=== PATIENT | female | born 1955 | race Caucasian/White ===

== ENCOUNTER → 2020-05-17 11:54 | Outpatient (CLI) | payer MEDICARE, MEDICAID, SELFPAY ==
[2020-05-17 12:57] LABS: COVID19 -Nasal RAPID Negative (Negative)
== END ==
PROVIDERS: Family Provider Physician Assistant; PCP Family Medicine; Visit Provider Physician Assistant
DX: Z01.812 Encounter for preprocedural laboratory examination (principal); Z20.822 Contact with and (suspected) exposure to COVID-19
CPT/HCPCS: 87635; C9803

== ENCOUNTER 2020-05-19 14:10 | Observation (INO) | payer MEDICARE, MEDICAID, SELFPAY ==
[2020-05-11 11:23] VITALS: BMI 48.6
[2020-05-11 14:57] VITALS: BMI 48.6
[2020-05-18] VITALS (16 sets, daily range): BP systolic 128–197; BP diastolic 61–79; PULSE 64–87; RESP 12–22; TEMP 36.1–36.6; O2SAT 94–100; BMI 48.6
--- NOTE | 2020-05-18 06:30 | DI.RAD.S_ITS ---
PROCEDURE: XR KNEE LT 1TO2V INDICATIONS: left TKA TECHNIQUE: 2 view(s) of the knee acquired. COMPARISON: None. FINDINGS: Bones: Expected postoperative alignment of left knee arthroplasty. Hardware appears intact. Soft tissues: Overlying postoperative changes are noted. IMPRESSION: Expected postoperative alignment. Dictated by: Kristopher Real M.D. on 05/18/2020 at 12:27 Approved by: Kristopher Real M.D. on 05/18/2020 at 12:28
[2020-05-18] MEDS: ACETAMINOPHEN 325 MG TABLET 975 MG PO (07:02)
[2020-05-18] MEDS: PREGABALIN 75 MG CAPSULE PO (07:02)
[2020-05-18] MEDS: VANCOMYCIN 1,000 MG/200 ML PIGGYBACK 200 MG IV (07:05)
--- NOTE | 2020-05-18 07:39 | PM.PREOP ---
Pre-operative Note COVID-19 COVID-19 status: Negative Interval Note History & Physical reviewed/Exam performed by Physician: Yes Changes to H&P: No
--- NOTE | 2020-05-18 07:40 | PM.OP.1 ---
Operative Date/Time/Diagnoses Date of procedure: 05/18/20 Time of procedure: 07:58 Pre-op diagnosis: Left knee osteoarthritis Post-op diagnosis: same Procedure & Clinicians Procedure: left total knee arthroplasty Same procedure as scheduled: Yes Indications: The patient has had progressively worsening left knee pain with radiographic changes consistent with arthritis. Non-operative management has failed and the patient has requested total knee replacement. The risks, benefits and alternatives to surgery were discussed with the patient prior to proceeding. Risks discussed included, but were not limited to, failure to relieve pain, stiffness, infection, nerve damage, deep venous thrombosis, pulmonary embolism, stroke, coma, heart attack, permanent paralysis and , as well as the potential need for eventual revision of the prosthetic. Surgeon: Lesley Agrawal Bone Grinder: Gregory Armendariz Anesthesia Type: General and Spinal Operative Notes Findings: severe left knee osteoarthritis, good stability Closure Type: primary Specimen(s): none sent Prosthetic devices, grafts, tissues, transplants, or devices: Agrawal and Nephew Dank BCS 2 size 5 femur, size 3 tibia, +10 poly, patella 7.5 x 32 mm Applied: drain(s) Estimated Blood Loss (mL): 250 Blood products transfused: none Tourniquet time (min): 95 Procedure in detail: The patient was seen in the pre-operative area, where the patient identified the left knee as the operative site and this was marked with my initials. The patient received pre-operative antibiotics, and was taken to the operating room and placed on the operative table in the supine position. After satisfactory anesthesia, a time recorder out was performed. The left leg was encircled with a tourniquet about the proximal thigh, and the leg was prepared from the toes to the tourniquet with ChloroPrep in the usual fashion and draped through sterile drapes. The leg was elevated and exsanguinated with Eschmark bandage and the tourniquet inflated to [250] mmHg pressure. The knee was approached through an approximately 18 cm incision centered over the patella and carried into the knee through a medial parapatellar arthrotomy. A portion of the medial and lateral meniscus was resected. Soft tissue was carefully mobilized around the patella the patella was measured with a caliper. Bone was resected from the patella and the patellar height was reconstituted with up an appropriate sized patellar component. A cover was then placed on the patella. A small amount of additional medial and lateral meniscus was resected. The distal femur was cut at 5?. A [+2] cut was used. It looked like an appropriate distal femoral cut and the cut was made without difficulty. An extramedullary guide was used for the tibial cut. 10 mm was resected off the least affected side.The tibia was prepared. The rotation was assessed. The patient was placed in extension residual medial and lateral meniscus as well as any residual bone was carefully resected. [No] additional tibia was resected. Hemostasis was achieved especially posteriorly. Additional local was injected into the posterior capsule. The extension gap was assessed and additional releases for gap balancing were performed as necessary. It was checked with the gap glass robot operator. The rotation was assessed and the appropriate size femoral guide was placed on the distal femur and finishing cuts were made. There was no evidence of notching. The anterior, posterior and chamfer cuts were then made. The posterior osteophytes and soft tissues were then removed. The posterior capsule was injected with part of a mixture of 60 ml 0.25% Marcaine mixed with 20 ml Exparel for post operative pain control. The remainder of this mixture was injected into the capsule and subcutaneous tissues during cement curing.The femoral component was placed and the notch was finished. The tibial and femoral components were then placed and the knee placed through a range of motion. Range of motion was [0-120], with good stability throughout the range. The trials were then removed, and the tibia was finished. The bone was prepared with pulsatile lavage, and dried with a sponge. Cement was applied and the final prosthetics placed. Excess cement was removed during and after cement curing. A brief Betadine soak was performed. After confirming there was no extruded cement posteriorly, the final tibial insert was placed. The knee was copiously irrigated and the tourniquet deflated. Hemostasis was obtained with the Bovie. A drain was placed and brought out superolaterally. The capsule was closed with interrupted nonabsorbable suture. The subcutaneous layer was closed with barbed sutures, and the skin with a running 3-0 V-Lock suture and skin berkley. An theresa dressing was applied and the patient was taken to recovery having tolerated the procedure well. Complications: none Post-operative Condition: stable Disposition: Acute Care Plan for aftercare: The patient will be maintained on a standard total knee replacement protocol with weight bearing as tolerated. The patient will receive Aspirin and sequential compression devices for DVT prophylaxis. The patient will be discharged home when safe for the home environment.
[2020-05-18] MEDS: LACTATED RINGERS 1,000 ML 42 ML IV ×2 (07:50→08:59)
[2020-05-18] MEDS: CEFAZOLIN 2 GM/100 ML FROZ.PIGGY IV (08:02)
--- NOTE | 2020-05-18 08:50 | SUR.OPER ---
Supine on padded OR bed. Pillow under head, arms secured on padded armboards <90 degree abduction. Safety belt across torso. Non-operative leg secured with tape over blanket over lower leg. Operative leg secured in DeMayo positioner. Foam padded brace at thigh of operative leg.
[2020-05-18] MEDS: TRANEXAMIC ACID 1,000 MG VIAL 2000 MG INJ ×2 (08:55→10:26)
[2020-05-18] MEDS: BUPIVACAINE LIPOSOME 266 MG/20 ML VIAL INJ (08:57)
[2020-05-18] MEDS: SODIUM CHLORIDE IRRIG SOLUTION 250 ML, POVIDONE-IODINE SPONGE STICKS 1 APPLIC IRR (08:57)
[2020-05-18] MEDS: BUPIVACAINE 0.5% W/ EPI (PF) 30 ML VIAL INJ (09:00)
--- NOTE | 2020-05-18 10:54 | PC.NURSE ---
Day shift: Pt not on AC unit at this time.
[2020-05-18] MEDS: NYSTATIN CREAM 30 GM 1 APPLIC TOP (11:08)
[2020-05-18] MEDS: OXYCODONE IR 5 MG TABLET PO ×3 (11:45→16:51)
[2020-05-18] MEDS: hydrOXYzine pamoate 25 MG CAPSULE PO (11:45)
--- NOTE | 2020-05-18 12:11 | PC.NURSE ---
Day shift: Pt on AC unit from PACu at approx 1210. She is A&Ox4. Spouse in room for support and his name is Sp. Reports pain 5/10. Denies any nausea. Tolerating ice chips and SCD's. 2L NC 96%. Dylan-vac to be unclamped at 1300. Left knee is MARK wrapped and KOKI in place (all CDI). Rash in panis and Nystain cream in Pt's room. It was applied in surgery department. Pt agrees to not get OOB w/o help from staff. PPP and CMS intact. Pt can wiggle bilat toes, feet, and legs. Will continue w/ post-op plan of care.
[2020-05-18] MEDS: IBUPROFEN 400 MG TABLET PO ×3 (12:52→21:17)
[2020-05-18] MEDS: OXYCODONE IR 10 MG TABLET PO (12:52)
[2020-05-18] MEDS: LACTATED RINGERS 1,000 ML 100 ML IV ×2 (12:57→22:37)
[2020-05-18] MEDS: ACETAMINOPHEN 325 MG TABLET 650 MG PO ×2 (14:48→21:17)
--- NOTE | 2020-05-18 16:18 | PT.IIE ---
Current Diagnoses Type 2 diabetes mellitus without complications (05/18/20) Other obesity due to excess calories (05/18/20) Obesity, unspecified (05/18/20) Sleep apnea, unspecified (05/18/20) Essential (primary) hypertension (05/18/20) Heart failure, unspecified (05/18/20) Unspecified asthma, uncomplicated (05/18/20) Spinal stenosis, site unspecified (05/18/20) Fibromyalgia (05/18/20) Other specified postprocedural states (05/18/20) Surgery Performed Operation Date: 05/18/20 07:45 Actual Procedures p Total Knee Arthroplasty(Left) - Lesley Agrawal MD Surgical History (Last Updated 05/17/20 @ 10:36 by Abby Colunga, RN) H/O lumbar discectomy History of bariatric surgery History of carpal tunnel release History of hysterectomy History of Rahat fundoplication History of total abdominal hysterectomy and bilateral salpingo-oophorectomy Hx of CABG Hx of cholecystectomy Medical History (Last Updated 05/17/20 @ 10:41 by Abby Colunga, RN) Allergic rhinitis Anxiousness Arachnoiditis Arthritis Asthma Atypical chest pain Back pain Bursitis of hip, right Cardiogenic shock (~2019) CHF (congestive heart failure) Chronic diastolic CHF (congestive heart failure) Chronic headache Chronic pain syndrome CKD (chronic kidney disease) stage 3, GFR 30-59 ml/min Cough DMII (diabetes mellitus, type 2) Dysphoric mood Eustachian tube dysfunction Fibromyalgia Frequent PVCs GERD (gastroesophageal reflux disease) Heart failure with preserved ejection fraction History of orthopnea History of pulmonary hypertension Hx of Clostridium difficile infection Hyperlipidemia Hypertension Intentional weight loss Intertrigo Lower extremity edema Lung mass Morbid obesity Narcolepsy Nervous Neuropathy Obesity Obesity due to excess calories Oral candidiasis Osteopenia Paroxysmal nocturnal dyspnea Plantar fasciitis of right foot Pneumonia Primary osteoarthritis of left knee Psoriasis Psoriatic arthritis PVD (peripheral vascular disease) Renal insufficiency Restless leg Seasonal allergies Sinus congestion Sinus tachycardia Sleep apnea with use of continuous positive airway pressure (CPAP) Sleep disturbance Spinal stenosis Thyroid disease Tinnitus Vitamin B12 deficiency Vitamin D deficiency Physical Therapy Inpatient Evaluation/Re-Eval M1 PT/OT-IP Prior Functional Status Start: 05/18/20 16:18 Freq: NEEDED Status: Active Protocol: Document 05/18/20 16:18 DLM (Rec: 05/18/20 16:42 DLM [id number]) Medical Review Prior Functional Status Medical History Reviewed Yes Diet/Fluid Consistency Regular Communication WNL Mobility and Gait ambulates in house without device, uses quad cane when going outside of the house, uses electric cart at grocery store, has 4WW she uses at home only as needed Activities of Daily Living and IADL's caregiver assist for ADL's and housekeeping Prior Functional Level (Other details) has a caregiver 6 hours per day, Spouse is disabled and can provided limited help, her Spouse sleeps odd hours to manage his health issues Social History Household Members spouse Living Arrangements House Number of Floors (Floors) One Floor Number of Stairs To Enter/Railing? can enter through garage without steps Home Environment Standard Height Toilet,Walk in Shower Home Equipment Four Wheel Walker,Quad Cane, Shower Seat without Backrest M2 PT-IP Current Condition Start: 05/18/20 16:18 Freq: NEEDED Status: Active Protocol: Document 05/18/20 16:18 DLGinny (Rec: 05/18/20 16:42 [facility] [id number]) Physical Therapy Current Condition Current Condition Evaluation Date 05/18/20 Treatment Diagnosis left TKA, impaired gait Onset Date 05/18/20 Weight Bearing Status Weight Bearing Status Weight Bear as Tolerated M3 PT-IP Subjective Start: 05/18/20 16:18 Freq: NEEDED Status: Active Protocol: Document 05/18/20 16:18 DLGinny (Rec: 05/18/20 16:42 [facility] [id number]) Subjective Physical Therapy Visit Type Type Initial Evaluation Visit Start Time 13:55 Visit Stop Time 16:18 Total Visit Minutes 23 Number of SYSTEM SOFTWARE DEVELOPER Visits 0 Physical Therapy Visit Comments Patient Comments She needs to go the bathroom, wants to sit up in the chair Patient Goals discharge home Therapy Pain Assessment Pain When Pain Assessed During Mobility Pain Present Pain Present Pain Reported Location left knee Intensity 7 Scale Used Numeric (0 - 10) Description Aching,With Movement Pain Behaviors Guarding Pain Management Techniques Apply Cold,Elevation M4 PT-IP Mobility and Gait Start: 05/18/20 16:18 Freq: NEEDED Status: Active Protocol: Document 05/18/20 16:18 DLGinny (Rec: 05/18/20 16:42 [facility] [id number]) PT-Bed Mobility Assessment Supine to Sit Supine to Sit Minimal Assistance Scooting Scooting to Edge of Bed Standby Assistance PT-Transfer Assessment Sit to and From Stand Sit to and from Stand Standby Assistance,Contact Guard Assistance,Use of Upper Extremities Equipment Transfer Assistive Device Gait Belt,Front Wheeled Walker Transfers Transfer Destination Chair,Bedside Commode Transfer Technique Stand Step Pivot Transfer Ability Level of Assist Standby Assistance,Contact Guard Assistance,Use of Upper Extremities Comments Mobility Comments pt up to bedside commode to urinate, pt incontinent during mobility, pt up to recliner when done on commode, pt left sitting with feet up and call light close Gait Assessment Gait Gait Assistance Required: Contact Guard Assist Distance (Feet) 2 Assistive Devices Assistive Device Gait Belt,Front Wheeled Walker Gait Deviations General Gait Pattern Antalgic Factors Limiting Gait Function Factors Limiting Gait Function Decreased Activity Tolerance, Decreased Strength,Limited Range of Motion,Pain Comments Gait Comments no light-headedness and no nausea this visit Stair Climbing Assessment Comments Stair Climbing Comments she has 3-4 steps at the front door but she usually goes in from the garage where there are no steps PT-Balance Assessment Sitting Balance and Reactions Static Sitting Balance Ability Normal Dynamic Sitting Balance Ability Normal Standing Balance and Reactions Static Standing Balance Ability Good Dynamic Standing Balance Ability Fair Device Used FWW M5 PT-IP Objective Assessments Start: 05/18/20 16:18 Freq: NEEDED Status: Active Protocol: Document 05/18/20 16:18 DL (Rec: 05/18/20 16:42 [facility] [id number]) Orientation Orientation/Cognition Level of Alertness Alert Orientation Name,Age,Birthday,Month,Date, Year,Day of Week,Place, Situation Language Function Ability No Deficits Noted Safety Awareness Understands Safety Issues Memory Description No Deficits Noted Gross Range of Motion Upper Extremity ROM Assessment Within Functional Limits Lower Extremity ROM Assessment Left Impaired Impairments tolerating about 20 degrees of knee AROM with c/o pain post- op TKA Strength Upper Extremity Strength Assessment Within Functional Limits Lower Extremity Strength Assessment Left Impaired Hip able to lift left LE off bed Knee 2+/5 Ankle DF 4/5 Comments Strength Comments pain with use of left LE post- op Coordination Assessment Gross Coordination Gross Coordination WNL Sensation Assessment Sensation Gross Sensation Right LE Impaired,Left LE Impaired Sensation Description Numbness Comments Sensation Comments hx neuropathy in feet, she reports left foot is a little more numb than baseline at this time Muscle Tone Muscle Tone WNL Yes M6 PT-IP Treatment Start: 05/18/20 16:18 Freq: NEEDED Status: Active Protocol: Document 05/18/20 16:18 DLM (Rec: 05/18/20 16:42 DL [id number]) Physical Therapy Treatment Exercises Exercises Ankle Pumps,Quad Sets,Heel Slides Education Education Provided Weight Bearing Status,Safety M7 PT-IP Assessment and Plan Start: 05/18/20 16:18 Freq: NEEDED Status: Active Protocol: Document 05/18/20 16:18 DLM (Rec: 05/18/20 16:42 [facility] [id number]) PT Summary Assessment and Plan Potential Rehabilitation Potential Good Status of Condition at Evaluation Evolving Summary Impairments Pain,ROM,Strength,Balance, Sensation,Bed Mobility, Transfers,Gait,Activity Tolerance Assessment Summary Shayla is alert and willing to work with physical therapy. She was able to get up to the commode and chair. She has increased with activity. She demonstrated good use of her UE's on the fWW to manage left LE pain. Pt has KOKI drain and hemovac in place. She reports having a caregiver at home who can help her 6 hours a day but she has to be independent when her caregiver leaves for the day. She does not use a bed at home and only sleeps in a recliner. She is progressing well today; day of surgery. Will continue to work towards discharge home. Goals Bed Mobility Goal Independent Transfer Goal Independent,Front Wheeled Walker Gait Goal Independent,Front Wheel Walker Gait Distance 75 feet Other Goals demonstrate good knowledge of HEP. Days to Meet Goals 3 Frequency of Treatment Frequency Of Treatment Twice a Day Treatment Plan Physical Therapy Treatment Plan Bed Mobility Training,Transfer Training,Gait Training, Therapeutic Exercise,Balance Retraining,Post Op Education, Discharge Planning,Hot or Cold Pack,Neuromuscular Re-ed Recommendations To Nursing Amount of Assist Needed 1 Person Assist Discharge Recommendations PT Discharge Recommendations Home with Assistance,Home Health Transportation Needs at Discharge Private Vehicle
[2020-05-18] MEDS: CEFAZOLIN VIAL 3 GM in SODIUM CHLORIDE 0.9% 100 ML 200 ML IV (16:40)
[2020-05-18] MEDS: INSULIN ASPART 100 UNIT/ML INSULN PEN SUBCUT (17:16)
--- NOTE | 2020-05-18 18:21 | PC.NURSE ---
Addendum entered by Sujey Epps R.N. 05/18/20 23:25: Satisfactory post op course. Med @ 2200 for discomfort w/good relief. Dsg remains CDI. Call light w/in reach, bed alarm on for pt safety. Continue w/plan of care. Original Note: Pt sitting in chair Med @ 1655 for discomfort, w/good relief. AC CBG = 162. S/S 1u given as per orders. IVF infusing into Right hand via pump as per orders. LAC HL intact/patent. KOKI dsg to left knee CDI Hemavac intact/patent. Stable post op course. Call light w/in reach, pt calls appropriately for needs.
[2020-05-18] MEDS: DOCUSATE 100 MG CAPSULE PO (21:16)
[2020-05-18] MEDS: DULOXETINE 30 MG CAPSULE PO (21:17)
[2020-05-18] MEDS: PRAMIPEXOLE 1 MG TABLET PO (21:17)
[2020-05-18] MEDS: ASPIRIN EC 81 MG TABLET PO (21:17)
[2020-05-18] MEDS: TAPENTADOL 100 MG 100 EACH PO (21:22)
[2020-05-18] MEDS: HYDROMORPHONE 2 MG TABLET PO (22:35)
[2020-05-19] MEDS: INSULIN GLARGINE 100 UNIT/ML 3ML PEN 25 UNIT SUBCUT (00:24)
[2020-05-19] MEDS: IBUPROFEN 400 MG TABLET PO ×4 (00:25→15:07)
[2020-05-19] MEDS: INSULIN ASPART 100 UNIT/ML INSULN PEN SUBCUT ×3 (00:25→12:07)
[2020-05-19] MEDS: CEFAZOLIN VIAL 3 GM in SODIUM CHLORIDE 0.9% 100 ML 200 ML IV (00:26)
[2020-05-19] MEDS: HYDROMORPHONE 2 MG TABLET PO ×3 (02:57→09:02)
[2020-05-19 05:00] VITALS: BP 125/68; PULSE 80; RESP 16; TEMP 36.1; O2SAT 94
[2020-05-19 05:35] LABS: Hematocrit 37.7 % (36-46); Hemoglobin 12.2 g/dL (12.0-16.0)
[2020-05-19 08:07] VITALS: BP 144/84; PULSE 54; RESP 18; TEMP 35.9; O2SAT 95
[2020-05-19] MEDS: MULTIVITAMIN 1 TABLET 1 TAB PO (08:07)
[2020-05-19] MEDS: CHOLECALCIFEROL (VITAMIN D3) 5,000 UNIT TABLET 5000 UNIT PO (08:07)
[2020-05-19] MEDS: DOCUSATE 100 MG CAPSULE PO (08:07)
[2020-05-19] MEDS: FLUTICASONE 120 SPRAY/16 GM SPRAY.SUSP NASAL (08:07)
[2020-05-19] MEDS: MONTELUKAST 10 MG TABLET PO (08:07)
[2020-05-19] MEDS: SPIRONOLACTONE 25 MG TABLET PO (08:08)
[2020-05-19] MEDS: ROSUVASTATIN 10 MG TABLET 5 MG PO (08:08)
[2020-05-19] MEDS: DULOXETINE 30 MG CAPSULE PO (08:09)
[2020-05-19] MEDS: LOSARTAN 25 MG TABLET PO (08:09)
[2020-05-19] MEDS: PRAMIPEXOLE 1 MG TABLET PO (08:09)
[2020-05-19] MEDS: ASPIRIN EC 81 MG TABLET PO (08:09)
[2020-05-19] MEDS: ACETAMINOPHEN 325 MG TABLET 650 MG PO (08:10)
[2020-05-19] MEDS: FAMOTIDINE 20 MG TABLET 40 MG PO (08:22)
[2020-05-19] MEDS: LORATADINE 10 MG TABLET PO (08:22)
--- NOTE | 2020-05-19 08:58 | P.DS_ITS ---
History of Present Illness History of Present Illness Date Patient Seen: 05/19/20 Time Patient Seen: 08:59 Chief complaint: L TKA *OPB* Narrative: Please refer to previously documented HPI and chart. Discharge Providers Provider Discharge Date: 05/19/20 Primary care physician: Jeb Titus MD Consults: 05/11/20 16:27 Consult to Anesthesiology Routine Comment: Doesn't use CPAP - can't find a mask to fit Consulting Provider: Lesley Agrawal Reason for consultation: Wt/BMI, extensive history Has provider been notified: Yes Consult to Pastoral Services Routine Comment: Dmitry Consult to Respiratory Therapy Evaluate & Treat Comment: Can't find a CPAP mask to fit her, doesn't use Physician Instructions: Evaluate and treat 05/18/20 06:30 Consult to Anesthesiology Routine Comment: Consulting Provider: Anesthesiologist Reason for consultation: Regional block for post operative pain control 05/18/20 07:14 Consult to Respiratory Therapy Evaluate & Treat Comment: Physician Instructions: Evaluate and treat 05/18/20 10:27 Consult to Physician Routine Comment: consult to primary care provider for followup Consulting Provider: Lesley Agrawal Reason for consultation: Positive STOP BANG, management of obstructive sleep apnea Has provider been notified: Yes 05/18/20 12:11 Consult to Discharge Planning Routine Comment: Consult to Physical Therapy Evaluate & Treat Comment: Physician Instructions: postop TKA protocol Consult to Respiratory Therapy Evaluate & Treat Comment: Physician Instructions: Evaluate and treat Discharge provider: Gregory Armendariz PA-C Summary Hospital Course Discharge Diagnosis: Left knee osteoarthritis Status post total left knee arthroplasty Hospital Course: This is a 65-year-old female with the above-listed diagnosis was consented for the indicated procedure above and presents to the OR [facility] said procedure without difficulty or complication that admitted to hospital for rehabilitation having convalesced appropriately. The patient was eventually able to discharge home safely with home health as needed in stable condition. At the time of discharge the patient verbalized understanding postoperative care instructions and agreed with plan for follow-up as scheduled or sooner as needed. Status at Discharge Cognitive/behavioral status at discharge: oriented Functional status at discharge: uses cane/walker Overall status at discharge: patient is progressing back to baseline Exam Vital Signs (past 8 hours): - 05/19/20 05:00 05/19/20 08:07 Temperature 96.9 F L 96.7 F L Pulse Rate 80 54 L Respiratory Rate 16 18 Blood Pressure 125/68 144/84 H Pulse Oximetry 94 95 Oxygen Delivery Method CPAP Oxygen Flow Rate 0 Narrative Exam Narrative: This is a 65-year-old female observed resting comfortably in no apparent distress. Alert and oriented within normal limits. Regular heart rate and normal inspiratory effort. Dressing was clean, dry and intact. The extremity distal to the affected joint was neurovascularly intact with grossly normal motor function. Patient was negative for signs and symptoms of DVT bilaterally. Objective Labs Result Diagrams: 05/19/20 05:05 Labs: Laboratory Results - last 24 hr 05/19/20 05:05 Hgb 12.2 Hct 37.7 PFSH Medical History (Updated 05/17/20 @ 10:41 by Abby Colunga RN) Allergic rhinitis Anxiousness Arachnoiditis Arthritis Asthma Atypical chest pain Back pain Bursitis of hip, right Cardiogenic shock (~2018) CHF (congestive heart failure) Chronic diastolic CHF (congestive heart failure) Chronic headache Chronic pain syndrome CKD (chronic kidney disease) stage 3, GFR 30-59 ml/min Cough DMII (diabetes mellitus, type 2) Dysphoric mood Eustachian tube dysfunction Fibromyalgia Frequent PVCs GERD (gastroesophageal reflux disease) Heart failure with preserved ejection fraction History of orthopnea History of pulmonary hypertension Hx of Clostridium difficile infection Hyperlipidemia Hypertension Intentional weight loss Intertrigo Lower extremity edema Lung mass Morbid obesity Narcolepsy Nervous Neuropathy Obesity Obesity due to excess calories Oral candidiasis Osteopenia Paroxysmal nocturnal dyspnea Plantar fasciitis of right foot Pneumonia Primary osteoarthritis of left knee Psoriasis Psoriatic arthritis PVD (peripheral vascular disease) Renal insufficiency Restless leg Seasonal allergies Sinus congestion Sinus tachycardia Sleep apnea with use of continuous positive airway pressure (CPAP) Sleep disturbance Spinal stenosis Thyroid disease Tinnitus Vitamin B12 deficiency Vitamin D deficiency Surgical History (Updated 05/17/20 @ 10:36 by Abby Colunga RN) H/O lumbar discectomy History of bariatric surgery History of carpal tunnel release History of hysterectomy History of Rahat fundoplication History of total abdominal hysterectomy and bilateral salpingo-oophorectomy Hx of CABG Hx of cholecystectomy Social History household members: spouse Smoking Status: Never smoker alcohol intake: current Discharge Assessment & Plan Assessment and Plan Assessment: Left knee osteoarthritis Status post total left knee arthroplasty Plan of Treatment: -discharge home with home health as needed after cleared by PT/OT. -total left knee care protocols apply. -follow-up in clinic in 2 weeks for re-evaluation or sooner as needed. Discharge Plan Discharge Plan Patient Disposition: SNF Transfer to: Home Health, Other Provider Discharge Comment: Discharge to home with any home health services recommended. I certify the postop hospital fdc care is medically necessary on a continuing basis for any conditions for which he/ she received care during this hospitalization.: Yes The receiving facility has agreed to accept transfer and provide medical treatment.: Yes Discharge orders & Medications Discharge Orders: Discharge (Order); Ordered 05/19/20 Ordered By: Gregory Armendariz Prescriptions: New acetaminophen 325 mg Tablet 650 mg PO TID PRN (Reason: Breakthrough Pain, Moderate) Qty: 60 RF: 0 aspirin 81 mg Tablet,Delayed Release (Dr/Ec) 81 mg PO BID Qty: 90 RF: 0 oxycodone 10 mg Tablet 5 - 10 mg PO Q4-5H PRN (Reason: Pain, Severe (7-10)) Qty: 40 RF: 0 Continued Lantus U-100 Insulin 100 unit/mL Solution 25 unit SUBCUT BEDTIME RF: 0 methylphenidate HCl 20 mg Tablet 20 - 40 mg PO DAILY PRN (Reason: narcolepsy) RF: 0 metolazone 5 mg Tablet 5 mg PO DAILY PRN (Reason: Water weight gain) RF: 0 leflunomide 20 mg Tablet 20 mg PO DAILY RF: 0 baclofen 10 mg Tablet 10 mg PO QID RF: 0 epinephrine [EpiPen] 0.3 mg/0.3 mL Auto-Injector 0.3 mg IM PRN PRN (Reason: Anaphylaxis) RF: 0 rosuvastatin [Crestor] 5 mg Tablet 5 mg PO DAILY RF: 0 duloxetine [Cymbalta] 30 mg Capsule,Delayed Release(Dr/Ec) 30 mg PO BID RF: 0 mometasone 0.1 % Solution 5 applic SEEINSTR RF: 0 Fasenra Pen 30 mg/mL Auto-Injector 30 mg SUBCUT Q8W RF: 0 multivitamin Tablet 1 tab PO DAILY RF: 0 pramipexole 1 mg Tablet 1 mg PO BID RF: 0 nystatin 100,000 unit/gram Ointment 1 applic TOPICAL BID-TID PRN (Reason: yeast infection in skin folds) RF: 0 lidocaine HCl 2 % Jelly See Rx Instructions .ROUTE .COMPLEX RF: 0 spironolactone 25 mg Tablet 25 mg PO DAILY RF: 0 triamcinolone acetonide [Kenalog] 0.1 % Ointment 1 applic TOPICAL BID PRN (Reason: Rash) RF: 0 lidocaine 5 % Adhesive Patch,Medicated 1 - 3 patch TOPICAL DAILY RF: 0 budesonide 0.5 mg/2 mL Suspension For Nebulization 2 mg inhalation BID PRN (Reason: Shortness Of Breath) RF: 0 montelukast 10 mg Tablet 10 mg PO DAILY RF: 0 albuterol 90 mcg/actuation Aerosol 2 mcg INHALATION Q4H PRN (Reason: SOB, Wheezing, asthma) RF: 0 diltiazem HCl [Cardizem] 30 mg Tablet 30 mg PO PRN PRN (Reason: Hypertension) RF: 0 albuterol sulfate 5 mg/mL Solution For Nebulization 2.5 mg INHALATION Q6H PRN (Reason: SOB) RF: 0 fluticasone propionate [Flonase] 50 mcg/actuation [place],Suspension 2 spray INTRANASAL DAILY RF: 0 insulin lispro [Humalog KwikPen Insulin] 100 unit/mL Insulin Pen 8 - 15 unit SUBCUT SEEINSTR RF: 0 diclofenac sodium 1 % Gel 2 g TOPICAL TID PRN (Reason: Pain (Scale Score 1-3)) RF: 0 Victoza 2-Александр 0.6 mg/0.1 mL (18 mg/3 mL) Pen Injector 0.6 mg SUBCUT DAILY RF: 0 naloxone 4 mg/actuation [place],Non-Aerosol 4 mg INTRANASAL PRN PRN (Reason: Drug overdose) RF: 0 bumetanide 1 mg Tablet 1 mg PO DAILY PRN (Reason: Water weight gain) RF: 0 cholecalciferol (vitamin D3) [Vitamin D3] 125 mcg (5,000 unit) Tablet 125 mcg PO DAILY RF: 0 cetirizine 10 mg Tablet 5 mg PO DAILY RF: 0 famotidine 40 mg Tablet 40 - 80 mg PO DAILY RF: 0 losartan 25 mg Tablet 25 mg PO DAILY RF: 0 ondansetron 4 mg Tablet,Disintegrating 4 mg PO TID PRN (Reason: Nausea) RF: 0 tapentadol 50 mg Tablet 50 mg PO SEEINSTR RF: 0 docusate sodium 100 mg Capsule 100 mg PO BID PRN (Reason: Constipation) RF: 0 Nucynta ER 100 mg Tablet Extended Release 12 Hr 100 mg PO BID RF: 0 Follow up/Referrals: Lesley Agrawal MD [Physician] - (Follow-up in 2 weeks or sooner as needed) Jeb Titus MD [Primary Care Provider] - Diet/Activity/Treatments Diet: Diet as Tolerated Activity: Weight-bearing as tolerated on left lower extremity with a front wheel walker and fall precautions. Cold/Heat Therapy: Ice 20 minutes/hour as tolerated. Skin/Wound/Dressing Care Report to your healthcare provider any signs of infection, such as:: chills, fever, night sweats, increased pain, unusual drainage and unusual redness Dressing: Keep dressing clean, dry and intact. Follow theresa dressing instructions and call as needed. [facility] Rehab type: Home health Visit Report/Discharge Packet Instructions: DI for Knee Replacement Stand Alone Forms: Surgery Discharge Discharge Data Primary Care Provider: Jeb Titus Attending Provider: Lesley Agrawal Quality VTE Deep Vein Thrombosis/Pulmonary Embolism Present on Admission: No
[2020-05-19] MEDS: TAPENTADOL 100 MG 100 EACH PO (09:40)
--- NOTE | 2020-05-19 10:19 | PT.IPTN ---
Current Diagnoses Type 2 diabetes mellitus without complications (05/18/20) Other obesity due to excess calories (05/18/20) Obesity, unspecified (05/18/20) Sleep apnea, unspecified (05/18/20) Essential (primary) hypertension (05/18/20) Heart failure, unspecified (05/18/20) Unspecified asthma, uncomplicated (05/18/20) Spinal stenosis, site unspecified (05/18/20) Fibromyalgia (05/18/20) Other specified postprocedural states (05/18/20) Surgery Performed Operation Date: 05/18/20 07:45 Actual Procedures p Total Knee Arthroplasty(Left) - Lesley Agrawal MD Physical Therapy Treatment Note M2 PT-IP Current Condition Start: 05/18/20 16:18 Freq: NEEDED Status: Active Protocol: Document 05/18/20 16:18 DLM (Rec: 05/18/20 16:42 DLM [id number]) Physical Therapy Current Condition Current Condition Evaluation Date 05/18/20 Treatment Diagnosis left TKA, impaired gait Onset Date 05/18/20 Weight Bearing Status Weight Bearing Status Weight Bear as Tolerated M3 PT-IP Subjective Start: 05/18/20 16:18 Freq: NEEDED Status: Active Protocol: Document 05/19/20 10:19 SP (Rec: 05/19/20 12:25 SP [id number]) Subjective Physical Therapy Visit Type Type Treatment Note Visit Start Time 09:50 Visit Stop Time 10:19 Total Visit Minutes 29 Notes SKILLS AUDITOR in room when arrived, stayed until pivot transfer to [facility]. Number of MILL REPRESENTATIVE Visits 1 Physical Therapy Visit Comments Patient Comments Pt willing to work with therapy. Patient Goals discharge home Therapy Pain Assessment Pain When Pain Assessed At Rest Pain Present Pain Present Pain Reported Location left knee Intensity 5 Scale Used 5/10 at rest, 7-8/10 during mobility Description Aching Pain Behaviors Facial Grimacing,Guarding Pain Management Techniques Apply Cold,Re-positioning, Timing of Activity with Medications M4 PT-IP Mobility and Gait Start: 05/18/20 16:18 Freq: NEEDED Status: Active Protocol: Document 05/19/20 10:19 SP (Rec: 05/19/20 12:25 SP [id number]) PT-Bed Mobility Assessment Supine to Sit Supine to Sit Minimal Assistance Scooting Scooting to Edge of Bed Standby Assistance PT-Transfer Assessment Sit to and From Stand Sit to and from Stand Standby Assistance,Contact Guard Assistance,Use of Upper Extremities Equipment Transfer Assistive Device Gait Belt,Front Wheeled Walker Transfers Transfer Destination Chair,Bedside Commode Transfer Technique Stand Step Pivot Transfer Ability Level of Assist Standby Assistance,Contact Guard Assistance,Use of Upper Extremities Comments Mobility Comments Completed supine>sit Min A for trunk support, Sit> stand at EOB CGA using FWW SPT to commode, sit> stand from commode SBA able to complete self hygiene and undergarment mgt in standing with support of fWW other UE. SPT to chair step to gait SBA. Sit> stand ambulated around room approx 30 ft using FWW SBA with heavy BUE on FWW, cued increased stride and foot clearance improved but not full step over step. Pt return to chair with shown proper use of call light and all needs in reach. Gait Assessment Gait Gait Assistance Required: Contact Guard Assist Distance (Feet) 30 Able to Maintain Weight Bearing Status Yes During Gait Assistive Devices Assistive Device Gait Belt,Front Wheeled Walker Orthotic/Prosthetic Devices or Brace: No Gait Deviations General Gait Pattern Antalgic,Decreased Stride Length,Decreased Feet Clearance,Step-to Gait Factors Limiting Gait Function Factors Limiting Gait Function Decreased Activity Tolerance, Decreased Strength,Limited Range of Motion,Pain Comments Gait Comments Increased BUE WB on FWW, step to gait, improve little longer stride LLE as distance progressed in room. Stair Climbing Assessment Comments Stair Climbing Comments she has 3-4 steps at the front door but she usually goes in from the garage where there are no steps. Pt states will enter through the garage and not needing to stairs at this time. PT-Balance Assessment Sitting Balance and Reactions Static Sitting Balance Ability Normal Dynamic Sitting Balance Ability Normal Standing Balance and Reactions Static Standing Balance Ability Good Dynamic Standing Balance Ability Fair Device Used FWW M5 PT-IP Objective Assessments Start: 05/18/20 16:18 Freq: NEEDED Status: Active Protocol: Document 05/18/20 16:18 DL (Rec: 05/18/20 16:42 DL [id number]) Orientation Orientation/Cognition Level of Alertness Alert Orientation Name,Age,Birthday,Month,Date, Year,Day of Week,Place, Situation Language Function Ability No Deficits Noted Safety Awareness Understands Safety Issues Memory Description No Deficits Noted Gross Range of Motion Upper Extremity ROM Assessment Within Functional Limits Lower Extremity ROM Assessment Left Impaired Impairments tolerating about 20 degrees of knee AROM with c/o pain post- op TKA Strength Upper Extremity Strength Assessment Within Functional Limits Lower Extremity Strength Assessment Left Impaired Hip able to lift left LE off bed Knee 2+/5 Ankle DF 4/5 Comments Strength Comments pain with use of left LE post- op Coordination Assessment Gross Coordination Gross Coordination WNL Sensation Assessment Sensation Gross Sensation Right LE Impaired,Left LE Impaired Sensation Description Numbness Comments Sensation Comments hx neuropathy in feet, she reports left foot is a little more numb than baseline at this time Muscle Tone Muscle Tone WNL Yes M6 PT-IP Treatment Start: 05/18/20 16:18 Freq: NEEDED Status: Active Protocol: Document 05/19/20 10:19 SP (Rec: 05/19/20 12:25 SP [id number]) Physical Therapy Treatment Exercises Exercises Ankle Pumps,Gluteal Sets,Quad Sets,Heel Slides,Supine Hip Abduction,Seated Knee Flexion/ Extension Knee ROM Measurement approx 70 deg during heel slide in sitting Education Education Provided Weight Bearing Status,Safety M7 PT-IP Assessment and Plan Start: 05/18/20 16:18 Freq: NEEDED Status: Active Protocol: Document 05/19/20 10:19 SP (Rec: 05/19/20 12:25 SP [id number]) PT Summary Assessment and Plan Potential Rehabilitation Potential Good Status of Condition at Evaluation Evolving Summary Impairments Pain,ROM,Strength,Balance, Sensation,Bed Mobility, Transfers,Gait,Activity Tolerance Progress Towards Goals Progressing Toward Goals,Slow Progress due to Pain,Slow Progress due to Activity Tolerance Assessment Summary Completed supine>sitting Min A x1 for trunk support transition to sit, scoot SBA, sit> stand CGA> SBA using FWW, gait longer distance in room 30 ft using fWW SBA. Pt would benefit from continued skilled therapy pm tx to improve standing strength and progress in distance gait. Pt has 6 hrs a day caregiver assist and would like her to come in to work together before leaves ( approx 1 hr away), has inconsistant physicial assist from due to medical. Pt prefers to get HHPT at this time before continuing therapy in outpt setting. Will continue to assess progress. Goals Bed Mobility Goal Independent Transfer Goal Independent,Front Wheeled Walker Gait Goal Independent,Front Wheel Walker Gait Distance 75 feet Other Goals demonstrate good knowledge of HEP. Days to Meet Goals 3 Frequency of Treatment Frequency Of Treatment Twice a Day Treatment Plan Physical Therapy Treatment Plan Bed Mobility Training,Transfer Training,Gait Training, Therapeutic Exercise,Balance Retraining,Post Op Education, Discharge Planning,Hot or Cold Pack,Neuromuscular Re-ed Other Recommendations and Next Treatment Caregiver training with [employer] caregiver 330 pm today. Bed mobility (will sleep in recliner at home), Transfers, distance gait trial 4WW but will need FWW if unsafe. Recommendations To Nursing Amount of Assist Needed 1 Person Assist Discharge Recommendations PT Discharge Recommendations Home with Assistance,Home Health Equipment Needed for Home Before FWW if unsafe with 4WW Discharge Transportation Needs at Discharge Private Vehicle
--- NOTE | 2020-05-19 10:19 | PT.IPTN ---
Current Diagnoses Type 2 diabetes mellitus without complications (05/18/20) Other obesity due to excess calories (05/18/20) Obesity, unspecified (05/18/20) Sleep apnea, unspecified (05/18/20) Essential (primary) hypertension (05/18/20) Heart failure, unspecified (05/18/20) Unspecified asthma, uncomplicated (05/18/20) Spinal stenosis, site unspecified (05/18/20) Fibromyalgia (05/18/20) Other specified postprocedural states (05/18/20) Surgery Performed Operation Date: 05/18/20 07:45 Actual Procedures p Total Knee Arthroplasty(Left) - Lesley Agrawal MD Physical Therapy Treatment Note M2 PT-IP Current Condition Start: 05/18/20 16:18 Freq: NEEDED Status: Active Protocol: Document 05/18/20 16:18 DLM (Rec: 05/18/20 16:42 DLM [id number]) Physical Therapy Current Condition Current Condition Evaluation Date 05/18/20 Treatment Diagnosis left TKA, impaired gait Onset Date 05/18/20 Weight Bearing Status Weight Bearing Status Weight Bear as Tolerated M3 PT-IP Subjective Start: 05/18/20 16:18 Freq: NEEDED Status: Active Protocol: Document 05/19/20 10:19 SP (Rec: 05/19/20 12:25 SP [id number]) Subjective Physical Therapy Visit Type Type Treatment Note Visit Start Time 09:50 Visit Stop Time 10:19 Total Visit Minutes 29 Notes ROTARY RIG ENGINE OPERATOR in room when arrived, stayed until pivot transfer to [facility]. Number of INSECTICIDE MIXER Visits 1 Physical Therapy Visit Comments Patient Comments Pt willing to work with therapy. Patient Goals discharge home Therapy Pain Assessment Pain When Pain Assessed At Rest Pain Present Pain Present Pain Reported Location left knee Intensity 5 Scale Used 5/10 at rest, 7-8/10 during mobility Description Aching Pain Behaviors Facial Grimacing,Guarding Pain Management Techniques Apply Cold,Re-positioning, Timing of Activity with Medications M4 PT-IP Mobility and Gait Start: 05/18/20 16:18 Freq: NEEDED Status: Active Protocol: Document 05/19/20 10:19 SP (Rec: 05/19/20 12:25 SP [id number]) PT-Bed Mobility Assessment Supine to Sit Supine to Sit Minimal Assistance Scooting Scooting to Edge of Bed Standby Assistance PT-Transfer Assessment Sit to and From Stand Sit to and from Stand Standby Assistance,Contact Guard Assistance,Use of Upper Extremities Equipment Transfer Assistive Device Gait Belt,Front Wheeled Walker Transfers Transfer Destination Chair,Bedside Commode Transfer Technique Stand Step Pivot Transfer Ability Level of Assist Standby Assistance,Contact Guard Assistance,Use of Upper Extremities Comments Mobility Comments Completed supine>sit Min A for trunk support, Sit> stand at EOB CGA using FWW SPT to commode, sit> stand from commode SBA able to complete self hygiene and undergarment mgt in standing with support of fWW other UE. SPT to chair step to gait SBA. Sit> stand ambulated around room approx 30 ft using FWW SBA with heavy BUE on FWW, cued increased stride and foot clearance improved but not full step over step. Pt return to chair with shown proper use of call light and all needs in reach. Gait Assessment Gait Gait Assistance Required: Contact Guard Assist Distance (Feet) 30 Able to Maintain Weight Bearing Status Yes During Gait Assistive Devices Assistive Device Gait Belt,Front Wheeled Walker Orthotic/Prosthetic Devices or Brace: No Gait Deviations General Gait Pattern Antalgic,Decreased Stride Length,Decreased Feet Clearance,Step-to Gait Factors Limiting Gait Function Factors Limiting Gait Function Decreased Activity Tolerance, Decreased Strength,Limited Range of Motion,Pain Comments Gait Comments Increased BUE WB on FWW, step to gait, improve little longer stride LLE as distance progressed in room. Stair Climbing Assessment Comments Stair Climbing Comments she has 3-4 steps at the front door but she usually goes in from the garage where there are no steps. Pt states will enter through the garage and not needing to stairs at this time. PT-Balance Assessment Sitting Balance and Reactions Static Sitting Balance Ability Normal Dynamic Sitting Balance Ability Normal Standing Balance and Reactions Static Standing Balance Ability Good Dynamic Standing Balance Ability Fair Device Used FWW M5 PT-IP Objective Assessments Start: 05/18/20 16:18 Freq: NEEDED Status: Active Protocol: Document 05/18/20 16:18 DL (Rec: 05/18/20 16:42 DL [id number]) Orientation Orientation/Cognition Level of Alertness Alert Orientation Name,Age,Birthday,Month,Date, Year,Day of Week,Place, Situation Language Function Ability No Deficits Noted Safety Awareness Understands Safety Issues Memory Description No Deficits Noted Gross Range of Motion Upper Extremity ROM Assessment Within Functional Limits Lower Extremity ROM Assessment Left Impaired Impairments tolerating about 20 degrees of knee AROM with c/o pain post- op TKA Strength Upper Extremity Strength Assessment Within Functional Limits Lower Extremity Strength Assessment Left Impaired Hip able to lift left LE off bed Knee 2+/5 Ankle DF 4/5 Comments Strength Comments pain with use of left LE post- op Coordination Assessment Gross Coordination Gross Coordination WNL Sensation Assessment Sensation Gross Sensation Right LE Impaired,Left LE Impaired Sensation Description Numbness Comments Sensation Comments hx neuropathy in feet, she reports left foot is a little more numb than baseline at this time Muscle Tone Muscle Tone WNL Yes M6 PT-IP Treatment Start: 05/18/20 16:18 Freq: NEEDED Status: Active Protocol: Document 05/19/20 10:19 SP (Rec: 05/19/20 12:25 SP [id number]) Physical Therapy Treatment Exercises Exercises Ankle Pumps,Gluteal Sets,Quad Sets,Heel Slides,Supine Hip Abduction,Seated Knee Flexion/ Extension Knee ROM Measurement approx 70 deg during heel slide in sitting Education Education Provided Weight Bearing Status,Safety M7 PT-IP Assessment and Plan Start: 05/18/20 16:18 Freq: NEEDED Status: Active Protocol: Document 05/19/20 10:19 SP (Rec: 05/19/20 12:25 SP [id number]) PT Summary Assessment and Plan Potential Rehabilitation Potential Good Status of Condition at Evaluation Evolving Summary Impairments Pain,ROM,Strength,Balance, Sensation,Bed Mobility, Transfers,Gait,Activity Tolerance Progress Towards Goals Progressing Toward Goals,Slow Progress due to Pain,Slow Progress due to Activity Tolerance Assessment Summary Completed supine>sitting Min A x1 for trunk support transition to sit, scoot SBA, sit> stand CGA> SBA using FWW, gait longer distance in room 30 ft using fWW SBA. Pt would benefit from continued skilled therapy to improve standing strength and progress in distance gait. Pt has 6 hrs a day caregiver assist, has inconsistant physicial assist from due to medical. Pt is set up with outpt therapy upon DC. Will continue to assess progress. Goals Bed Mobility Goal Independent Transfer Goal Independent,Front Wheeled Walker Gait Goal Independent,Front Wheel Walker Gait Distance 75 feet Other Goals demonstrate good knowledge of HEP. Days to Meet Goals 3 Frequency of Treatment Frequency Of Treatment Twice a Day Treatment Plan Physical Therapy Treatment Plan Bed Mobility Training,Transfer Training,Gait Training, Therapeutic Exercise,Balance Retraining,Post Op Education, Discharge Planning,Hot or Cold Pack,Neuromuscular Re-ed Other Recommendations and Next Treatment Bed mobility, Transfers, Focus distance gait trial 4WW but will need FWW if unsafe for home. Recommendations To Nursing Amount of Assist Needed 1 Person Assist Discharge Recommendations PT Discharge Recommendations Home with Assistance,Home Health,Outpatient PT Equipment Needed for Home Before FWW if unsafe with 4WW Discharge Transportation Needs at Discharge Private Vehicle
--- NOTE | 2020-05-19 10:55 | PC.NURSE ---
Addendum entered by Natty Cortez R.N. 05/19/20 15:18: Patient has a hx of gastric bypass, she states that she had chicken for lunch and this usually does not do well for her. She had a 20cc emesis and states that this occasionally happens, she is feeling better now and is set to discharge home. Addendum entered by Natty Cortez R.N. 05/19/20 14:42: Patients hemovac taken out, tolerated well. Original Note: Assess- Patient is a&ox3, states that her pain level is 6/10, given tylenol, ibuprofen, and dilaudid. Patient worked with physical therapy and is now sitting up in the chair. Will take her hemovac out and also khalida wrap soon. Patient also has a yeast rash under her breasts, and folds. Patient has nystatin cream that she has been getting, which is helpful. CMS to l.leg is wnl and ppx2.
[2020-05-19] MEDS: INSULIN ASPART 100 UNIT/ML INSULN PEN 8 UNIT SUBCUT (12:16)
[2020-05-19] MEDS: OXYCODONE IR 10 MG TABLET PO (14:10)
[2020-05-19] MEDS: ONDANSETRON 4 MG ODT PO (14:10)
--- NOTE | 2020-05-19 14:30 | CM.DPNOTE ---
Faxed referral packet to [facility] on 05/19/20. Includes DC Summary. Fax confirmation received. Mikayla Law CM Asst.
--- NOTE | 2020-05-19 14:42 | CM.DANOTE ---
Addendum entered by Genesis Braun 05/19/20 14:52: HAULPAK DRIVER contacts Shahla at [facility] regarding referral. Original Note: DCP Note: Patient is 65 yo Female with [facility] and Medicaid. Patient presents to hospital post op L TKA. mechanical unit repairer met with patient at bedside. Patient presents as A/Ox4 sitting upright in chair. Per PT, patient is ambulating and moving around with no assistance. PT will evaluate again today at 1530 with present. Per PT, patient has power wheelchair, FWW, and 4WW at home. Patient has a caregiver at home that provides regular assistance. Recommendation is home with HH, patient is medically stable and safe for discharge today. Patient presents with anxiety about going home so soon. Patient reports that her is disabled and has Cindy Gehrig disease and cannot be her only caregiver, her reported concern this evening was regarding meal prep and her pain management. Patient was informed to discuss pain management with RN. Per RN, patient will d/c today. HAULPAK DRIVER provides Medicare HH options list to patient and patient choice [facility] and states that she has worked with [facility] before. Patient will receive HH for RN, OT, PT, and HH aide. Plan: d/c to home with HH. WILLIAM Ojeda Discharge Planning/Care Management CM Discharge Assessment Start: 05/19/20 14:39 Freq: Status: Active Protocol: Document 05/19/20 14:39 LN (Rec: 05/19/20 14:42 LN [id number]) Discharge Planning Assessment Assigned Oncology Nurse WILLIAM Hurtado Advance Directives? No History Provided By Patient Has Patient been admitted in last 30 No days? Prior Living Arrangements House Household Members spouse Type of transporation used prior to Relies on Others admit Independent with ADL's Yes Is patient alert and oriented? Yes Needs Assistance With Meal Prep,Home Chores / Shopping DME Already Rented / Owned FWW / Walker Patient/Family Preference Home with Home Health Discharge Plan Home with Home Health Community Services Physical Therapy,Occupational Therapy,Home Health Aid,Home Health Nurse Referrals Initiated Home Health If patient plan is home with home health Yes : Has signed face to face form been completed? Medicare Choice List Provided Yes SNF/HH Preference [facility] Contact Name/Phone Shahla - [phone] Whiteboard Updated in Patient Room with Yes name and ext. # of Oncology Nurse Please Provide Date Initial DC 05/19/20 Assessment Was Performed Pre-Anesthesia Assessment Start: 05/11/20 11:23 Freq: Status: Complete Protocol: Document 05/11/20 11:23 [facility] (Rec: 05/11/20 11:40 [facility] [id number]) Pre-Anesthesia Assessment Patient Information Reviewed Via Chart Review Primary Care Provider Jonah Rausch Seen Specialist in Last 12 Months Yes Specialist Seen Orthopedist Height 157.48 cm Weight 120.656 kg Body Mass Index (BMI) 48.6 Anesthesia Review Requested Yes: Wt/BMI alcohol intake current Smoking Status Never smoker Musculoskeletal Symptoms Abnormal Gait,Arthralgias,Back Pain,Difficulty Walking,Joint Pain,Myalgias Ambulatory Aid Crutches/cane/walker Prosthesis or Orthotic Device Front Wheel Walker Does patient have WATKINS/SOB Yes Can You Climb a Flight of Stairs Without No SOB Marital Status Document 05/11/20 14:57 [facility] (Rec: 05/11/20 16:27 [facility] [id number]) Pre-Anesthesia Assessment Preferred Name Shayla Patient Information Reviewed Via Chart Review,Phone Assessment Assessment Completed With Patient Diagnostic Results BMP/CMP,CBC,EKG,Other Comment Covid Primary Care Provider Jeb Titus Seen Specialist in Last 12 Months Yes Specialist Seen Male Model,Orthopedist,Other Comment Dairy Consultant, Neurologist, Bypass Dr, GI, Pain Management , Pulmonology Primary Language [place] Preferred Language [place] Motorized Squad Commanding Officer Required No Height 157.48 cm Weight 120.656 kg Body Mass Index (BMI) 48.6 Hearing Ability Normal Visual Impairment Partially Limited Visual Assist Glasses Dentition Type Partial- Upper Barriers to Learning Visual Other Aids No Hx Anesthesia Reactions Yes: BP dropped, cancelled surgery Hx Family Anesthesia Reaction Yes: Mom - nausea Hx Malignant Hyperthermia No Hx Blood Transfusions No Hx Blood Transfusion Reaction No Anesthesia Review Requested Yes: Wt/BMI Traffic Attendant No alcohol intake current alcohol intake frequency other Alcohol Intake Frequency Other: Rare - 5 or less in lifetime Smoking Status Never smoker Substance Use Type does not use Pain Present Pain Reported Comment Pretty much everywhere, specifically feet and my knees ... hands Musculoskeletal Symptoms Abnormal Gait,Arthralgias,Back Pain,Difficulty Walking,Joint Pain,Joint Stiffness,Joint Swelling,Limited Range of Motion,Muscle Weakness, Myalgias,Numbness,Radiating Pain into Limb,Tingling History of Falling (Recent or History of No ) Ambulatory Aid Crutches/cane/walker Prosthesis or Orthotic Device Cane,Front Wheel Walker Gait/Transferring Weak,Impaired Mental Status Oriented to own ability Is patient on oxygen? 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 Comment Covid 05/17/20 at Marital Status Lives With spouse Prior Living Arrangements House Number of Floors (Floors) Two Floors Number of Stairs To Enter/Railing? can enter through garage without steps Support System Caregiver,Spouse Does the Patient Have Assistance After Yes Surgery Patient Discharge Plan Description Return Home Feels Safe in Current Environment Yes Been Physically Hurt or Threatened By a No Person in Current Environment Do you have thoughts of harming yourself None or others? Are you currently considering suicide? No Do you have a plan to hurt yourself or No Plan others? Do You Have Any Spiritual Beliefs That No May Affect Your HC Choices? Do You Have Any Cultural Practices That No May Affect Your HC Choices? Spiritual Referral In-House [place]t Comment Restoration Who Can We Speak to About Patient's Care Family & Friends Identifying Code for Release of Patient Kavitha Rangel Health Care Proxy/Next of Kin Spouse - Valdemar Macario (Hard of hearing) Health Care Proxy Emergency Contact Name Spouse - Valdemar Macario (Hard of Hearing) Emergency Contact Advance Directives? No Power of Road Train Driver No PAC Instructions Assistance for 24 hours post- op,Do not shave/clip surgical site,Durable medical equipment ,Medications to take/avoid, Nasal antibiotic,No ETOH/ petroleum product on skin DOS, NPO,Ortho class,Post-op transportation,Pre-op antibiotic,Pre-surgical wash, Sensory aids,Sturdy shoes/ comfortable clothes,Do not bring valuables and remove jewelry Discharge Planning/Care Management CM Discharge Assessment Start: 05/19/20 14:39 Freq: Status: Active Protocol: Document 05/19/20 14:39 LN (Rec: 05/19/20 14:42 LN [id number]) Discharge Planning Assessment Assigned Oncology Nurse WILLIAM Hurtado Advance Directives? No History Provided By Patient Has Patient been admitted in last 30 No days? Prior Living Arrangements House Household Members spouse Type of transporation used prior to Relies on Others admit Independent with ADL's Yes Is patient alert and oriented? Yes Needs Assistance With Meal Prep,Home Chores / Shopping DME Already Rented / Owned FWW / Walker Patient/Family Preference Home with Home Health Discharge Plan Home with Home Health Community Services Physical Therapy,Occupational Therapy,Home Health Aid,Home Health Nurse Referrals Initiated Home Health If patient plan is home with home health Yes : Has signed face to face form been completed? Medicare Choice List Provided Yes SNF/HH Preference [facility] Contact Name/Phone Shahla Busch [phone] Whiteboard Updated in Patient Room with Yes name and ext. # of Oncology Nurse Please Provide Date Initial DC 05/19/20 Assessment Was Performed Pre-Anesthesia Assessment Start: 05/11/20 11:23 Freq: Status: Complete Protocol: Document 05/11/20 11:23 NOÉ (Rec: 05/11/20 11:40 NOÉ [id number]) Pre-Anesthesia Assessment Patient Information Reviewed Via Chart Review Primary Care Provider Jonah Rausch Seen Specialist in Last 12 Months Yes Specialist Seen Orthopedist Height 157.48 cm Weight 120.656 kg Body Mass Index (BMI) 48.6 Anesthesia Review Requested Yes: Wt/BMI alcohol intake current Smoking Status Never smoker Musculoskeletal Symptoms Abnormal Gait,Arthralgias,Back Pain,Difficulty Walking,Joint Pain,Myalgias Ambulatory Aid Crutches/cane/walker Prosthesis or Orthotic Device Front Wheel Walker Does patient have WATKINS/SOB Yes Can You Climb a Flight of Stairs Without No SOB Marital Status Document 05/11/20 14:57 [facility] (Rec: 05/11/20 16:27 [facility] [id number]) Pre-Anesthesia Assessment Preferred Name Shayla Patient Information Reviewed Via Chart Review,Phone Assessment Assessment Completed With Patient Diagnostic Results BMP/CMP,CBC,EKG,Other Comment Covid Primary Care Provider Jeb Titus Seen Specialist in Last 12 Months Yes Specialist Seen Male Model,Orthopedist,Other Comment Dairy Consultant, Neurologist, Bypass Dr, GI, Pain Management , Pulmonology Primary Language [place] Preferred Language [place] Motorized Squad Commanding Officer Required No Height 157.48 cm Weight 120.656 kg Body Mass Index (BMI) 48.6 Hearing Ability Normal Visual Impairment Partially Limited Visual Assist Glasses Dentition Type Partial- Upper Barriers to Learning Visual Other Aids No Hx Anesthesia Reactions Yes: BP dropped, cancelled surgery Hx Family Anesthesia Reaction Yes: Mom - nausea Hx Malignant Hyperthermia No Hx Blood Transfusions No Hx Blood Transfusion Reaction No Anesthesia Review Requested Yes: Wt/BMI Traffic Attendant No alcohol intake current alcohol intake frequency other Alcohol Intake Frequency Other: Rare - 5 or less in lifetime Smoking Status Never smoker Substance Use Type does not use Pain Present Pain Reported Comment Pretty much everywhere, specifically feet and my knees ... hands Musculoskeletal Symptoms Abnormal Gait,Arthralgias,Back Pain,Difficulty Walking,Joint Pain,Joint Stiffness,Joint Swelling,Limited Range of Motion,Muscle Weakness, Myalgias,Numbness,Radiating Pain into Limb,Tingling History of Falling (Recent or History of No ) Ambulatory Aid Crutches/cane/walker Prosthesis or Orthotic Device Cane,Front Wheel Walker Gait/Transferring Weak,Impaired Mental Status Oriented to own ability Is patient on oxygen? 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 Comment Covid 05/17/20 at Marital Status Lives With spouse Prior Living Arrangements House Number of Floors (Floors) Two Floors Number of Stairs To Enter/Railing? can enter through garage without steps Support System Caregiver,Spouse Does the Patient Have Assistance After Yes Surgery Patient Discharge Plan Description Return Home Feels Safe in Current Environment Yes Been Physically Hurt or Threatened By a No Person in Current Environment Do you have thoughts of harming yourself None or others? Are you currently considering suicide? No Do you have a plan to hurt yourself or No Plan others? Do You Have Any Spiritual Beliefs That No May Affect Your HC Choices? Do You Have Any Cultural Practices That No May Affect Your HC Choices? Spiritual Referral In-House [place] Comment Restoration Who Can We Speak to About Patient's Care Family & Friends Identifying Code for Release of Patient Kavitha Rangel Health Care Proxy/Next of Kin Spouse - Valdemar Macario (Hard of hearing) Health Care Proxy Emergency Contact Name Spouse - Valdemar Macario (Hard of Hearing) Emergency Contact Advance Directives? No Power of Road Train Driver No PAC Instructions Assistance for 24 hours post- op,Do not shave/clip surgical site,Durable medical equipment ,Medications to take/avoid, Nasal antibiotic,No ETOH/ petroleum product on skin DOS, NPO,Ortho class,Post-op transportation,Pre-op antibiotic,Pre-surgical wash, Sensory aids,Sturdy shoes/ comfortable clothes,Do not bring valuables and remove jewelry
--- NOTE | 2020-05-19 15:46 | PT.IPTN ---
Current Diagnoses Type 2 diabetes mellitus without complications (05/19/20) Other obesity due to excess calories (05/19/20) Obesity, unspecified (05/19/20) Sleep apnea, unspecified (05/19/20) Essential (primary) hypertension (05/19/20) Heart failure, unspecified (05/19/20) Unspecified asthma, uncomplicated (05/19/20) Spinal stenosis, site unspecified (05/19/20) Fibromyalgia (05/19/20) Other specified postprocedural states (05/19/20) Surgery Performed Operation Date: 05/18/20 07:45 Actual Procedures p Total Knee Arthroplasty(Left) - Lesley Agrawal MD Physical Therapy Treatment Note M2 PT-IP Current Condition Start: 05/18/20 16:18 Freq: NEEDED Status: Active Protocol: Document 05/18/20 16:18 DLM (Rec: 05/18/20 16:42 DLM [id number]) Physical Therapy Current Condition Current Condition Evaluation Date 05/18/20 Treatment Diagnosis left TKA, impaired gait Onset Date 05/18/20 Weight Bearing Status Weight Bearing Status Weight Bear as Tolerated M3 PT-IP Subjective Start: 05/18/20 16:18 Freq: NEEDED Status: Active Protocol: Document 05/19/20 15:36 HH (Rec: 05/19/20 15:46 HH [id number]) Subjective Physical Therapy Visit Type Type Treatment Note Visit Start Time 14:32 Visit Stop Time 15:55 Total Visit Minutes 23 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 Patient Goals discharge home Therapy Pain Assessment Pain When Pain Assessed At Rest Pain Present Pain Present Pain Reported Location left knee Intensity 5 Scale Used 5/10 at rest, 7-8/10 during mobility Description Aching Pain Behaviors Facial Grimacing,Guarding Pain Management Techniques Apply Cold,Re-positioning, Timing of Activity with Medications M4 PT-IP Mobility and Gait Start: 05/18/20 16:18 Freq: NEEDED Status: Active Protocol: Document 05/19/20 15:36 HH (Rec: 05/19/20 15:46 HH [id number]) PT-Transfer Assessment Sit to and From Stand Sit to and from Stand Standby Assistance,Contact Guard Assistance,Use of Upper Extremities Equipment Transfer Assistive Device Gait Belt,Front Wheeled Walker Transfers Transfer Destination Chair Transfer Technique Stand Step Pivot Transfer Ability Level of Assist Standby Assistance,Contact Guard Assistance,Use of Upper Extremities Comments Mobility Comments Pt just returned to chair from bathroom with [employer] CGA FWW. Pt then practiced heel slides up to 60 degrees flexion. She then got up with SBA and chair push off. She then amb with step to pattern with FWW slowly to room door. Pt stated she is minimally WB on LLE d/ t pain. She did go out to the hallway and get to with safe descend for DC planning. Handed off pt to BJ Luz after. Gait Assessment Gait Gait Assistance Required: Contact Guard Assist Distance (Feet) 18 Able to Maintain Weight Bearing Status Yes During Gait Assistive Devices Assistive Device Gait Belt,Front Wheeled Walker Orthotic/Prosthetic Devices or Brace: No Gait Deviations General Gait Pattern Antalgic,Decreased Stride Length,Decreased Feet Clearance,Step-to Gait Factors Limiting Gait Function Factors Limiting Gait Function Decreased Activity Tolerance, Decreased Strength,Limited Range of Motion,Pain Comments Gait Comments Increased BUE WB on FWW, step to gait, improve little longer stride LLE as distance progressed in room. Stair Climbing Assessment Comments Stair Climbing Comments no LANDRY for garage entrance PT-Balance Assessment Sitting Balance and Reactions Static Sitting Balance Ability Normal Dynamic Sitting Balance Ability Normal Standing Balance and Reactions Static Standing Balance Ability Good Dynamic Standing Balance Ability Fair Device Used FWW M5 PT-IP Objective Assessments Start: 05/18/20 16:18 Freq: NEEDED Status: Active Protocol: Document 05/18/20 16:18 DLM (Rec: 05/18/20 16:42 DL [id number]) Orientation Orientation/Cognition Level of Alertness Alert Orientation Name,Age,Birthday,Month,Date, Year,Day of Week,Place, Situation Language Function Ability No Deficits Noted Safety Awareness Understands Safety Issues Memory Description No Deficits Noted Gross Range of Motion Upper Extremity ROM Assessment Within Functional Limits Lower Extremity ROM Assessment Left Impaired Impairments tolerating about 20 degrees of knee AROM with c/o pain post- op TKA Strength Upper Extremity Strength Assessment Within Functional Limits Lower Extremity Strength Assessment Left Impaired Hip able to lift left LE off bed Knee 2+/5 Ankle DF 4/5 Comments Strength Comments pain with use of left LE post- op Coordination Assessment Gross Coordination Gross Coordination WNL Sensation Assessment Sensation Gross Sensation Right LE Impaired,Left LE Impaired Sensation Description Numbness Comments Sensation Comments hx neuropathy in feet, she reports left foot is a little more numb than baseline at this time Muscle Tone Muscle Tone WNL Yes M6 PT-IP Treatment Start: 05/18/20 16:18 Freq: NEEDED Status: Active Protocol: Document 05/19/20 15:36 HH (Rec: 05/19/20 15:46 [id number]) Physical Therapy Treatment Exercises Exercises Ankle Pumps,Gluteal Sets,Quad Sets,Heel Slides,Supine Hip Abduction,Seated Knee Flexion/ Extension Knee ROM Measurement approx 60 deg during heel slide in sitting Education Education Provided Weight Bearing Status,Safety M7 PT-IP Assessment and Plan Start: 05/18/20 16:18 Freq: NEEDED Status: Active Protocol: Document 05/19/20 15:36 HH (Rec: 05/19/20 15:46 [id number]) PT Summary Assessment and Plan Potential Rehabilitation Potential Good Status of Condition at Evaluation Evolving Summary Impairments Pain,ROM,Strength,Balance, Sensation,Bed Mobility, Transfers,Gait,Activity Tolerance Progress Towards Goals Progressing Toward Goals,Slow Progress due to Pain,Slow Progress due to Activity Tolerance Assessment Summary Pt's CG is not available for CG training this pm. pt overall completed transfer and 18 ft of walkign with FWW with SBA/ CGA. Pt will be dc home with /CG assistance and have Home health to improve her mobility and strength. Goals Bed Mobility Goal Independent Transfer Goal Independent,Front Wheeled Walker Gait Goal Independent,Front Wheel Walker Gait Distance 75 feet Other Goals demonstrate good knowledge of HEP. Days to Meet Goals 3 Frequency of Treatment Frequency Of Treatment Twice a Day Treatment Plan Physical Therapy Treatment Plan Bed Mobility Training,Transfer Training,Gait Training, Therapeutic Exercise,Balance Retraining,Post Op Education, Discharge Planning,Hot or Cold Pack,Neuromuscular Re-ed Recommendations To Nursing Amount of Assist Needed 1 Person Assist Discharge Recommendations PT Discharge Recommendations Home with Assistance,Home Health Equipment Needed for Home Before FWW if unsafe with 4WW Discharge Transportation Needs at Discharge Private Vehicle
== END 2020-05-19 15:40 | disposition home or self-care (01) ==
LOC: OR 14:59 → AC 14:59
PROVIDERS: Admitting Provider Orthopaedic Surgery; Family Provider Physician Assistant; PCP Family Medicine; Referring Provider Orthopaedic Surgery; Visit Provider Orthopaedic Surgery
PROC: 0SRD0JZ Replacement of Left Knee Joint with Synthetic Substitute, Open Approach (ICD-10-PCS; CPT 27447; principal; 2020-05-18 07:45)
DX: M17.12 Unilateral primary osteoarthritis, left knee (principal); E11.9 Type 2 diabetes mellitus without complications; I11.0 Hypertensive heart disease with heart failure; I50.30 Unspecified diastolic (congestive) heart failure; E66.01 Morbid (severe) obesity due to excess calories; G47.33 Obstructive sleep apnea (adult) (pediatric); J45.909 Unspecified asthma, uncomplicated; M79.7 Fibromyalgia; I73.9 Peripheral vascular disease, unspecified; M48.00 Spinal stenosis, site unspecified; Z98.84 Bariatric surgery status; Z68.42 Body mass index [BMI] 45.0-49.9, adult; Z79.4 Long term (current) use of insulin; Z95.1 Presence of aortocoronary bypass graft
CPT/HCPCS: 27447; 36415; 73560; 82962; 85014; 85018; 97116; 97162; 97530; C1776; G0378; A9270; C9290; J0171; J0330; J0690; J2250; J2405; J2704; J3010